=== PATIENT | male | born 1970 | race Caucasian/White ===

== ENCOUNTER 2023-04-29 17:20 | Emergency (ER) | payer OTHER, SELFPAY ==
--- NOTE | ~2023-04-29 | CT_ITS ---
EXAMINATION: CT SOFT TISSUE NECK WITHOUT CONTRAST CLINICAL INFORMATION: Right-sided parotid swelling COMPARISON: None available. TECHNIQUE: Helical imaging was performed in the axial plane with generation of coronal and sagittal reformatted images. Coronal and sagittal reformatted images are performed at CT scanner This CT examination was performed using dose optimization techniques as appropriate, variously including the following: *Automated exposure control *Adjustment of mA and/or kV according to patient size (this includes techniques or standardized protocols for targeted exams where dose is matched to indication/reason for exam; i.e. extremities or head) *Use of iterative reconstruction technique DLP: 539 mGy-cm FINDINGS: Right left parotid glands are symmetric in size and similar in density. No mass. No focal fluid collection or abscess. No calcification. No neck mass or lymphadenopathy. The fat planes throughout the neck are normal. Normal nasopharynx, pharynx and hypopharynx structures. Normal aeration of paranasal sinuses. The orbits are unremarkable. Degenerative spondylosis of disc height narrowing and vertebral endplate spur C4-C5 through the C6-C7 discs levels. Lung apices and superior mediastinum normal. Thyroid and submandibular glands are normal. CT/CT soft tissue neck wo IV con IMPRESSION: Normal CT of soft tissues of the neck. The right and left parotid glands are symmetric in size and similar in density. No mass or lymphadenopathy.
--- NOTE | 2023-04-29 17:33 | ED.GENADULT ---
HPI - General Adult General Chief complaint: Dental/Oral Stated complaint: right side jaw pain,? salivary stone Time Seen by Provider: 04/29/23 19:39 Source: patient, family, RN notes reviewed and old records reviewed Mode of arrival: ambulatory Limitations: no limitations History of Present Illness HPI narrative: This is a 52-year-old male, with a past medical history of TIA, presenting to the emergency department for evaluation of right-sided jaw pain. Patient was seen at an urgent care earlier today who believed that it was a salivary stone, was prescribed prednisone andTylenol. Patient reports that he was woken up in the middle of the night at 2:00 a.m. with right-sided jaw pain which has since worsened. He reports that the pain worsens upon palpation externally and with opening and closing of his job. Patient denies any fevers or chills. Reporting a 10/10 pain. No other complaints or concerns at this time. MD complaint: Right-sided jaw pain Onset (ago): hour(s) Location: face Radiation: non-radiation Severity: mild Quality: aching Pain Consistency: constant Relieving factors: none Exacerbating factors: none Associated symptoms: denies other symptoms Treatments prior to arrival: none Related Data Previous Rx's Medication Instructions Recorded ketorolac 10 mg tablet 10 mg PO Q6H PRN pain 5 days #10 04/30/23 tabs lidocaine 4 % topical cream 1 appl topical BID PRN pain #15 04/30/23 grams Allergies Allergy/AdvReac Type Severity Reaction Status Date / Time No Known Allergies Allergy Verified 04/29/23 17:37 Review of Systems Review of Systems: Constitutional: No Weight loss, No Fever, No Chills, No Night Sweats, No Fatigue, No Malaise ENT/Mouth: No Hearing loss, No Ear Pain, No Nasal Congestion, No Sinus Pain, No Hoarseness, No sore throat, No Rhinorrhea, No Swallowing Difficulty Eyes: No Eye Pain, No Swelling, No Redness, No Foreign Body, No Discharge, No Vision Changes Cardiovascular: No Chest Pain, No SOB, No Dyspnea on Exertion, No Orthopnea, No Edema, No Palpitations Respiratory: No Cough, No Sputum, No Wheezing, No Smoke Exposure, No Dyspnea Gastrointestinal: No Nausea, No Vomiting, No Diarrhea, No Constipation, No Abdominal pain, No Hematochezia, No Melena Genitourinary: No irregular bleeding, No Dysuria, No Urinary Frequency, No Hematuria, No Urinary Incontinence/retention, No Urgency, No Flank Pain, No Urinary Flow Changes, No Hesitancy Musculoskeletal: No joint pain, No Myalgias, No Joint Swelling Skin: No Skin Lesions, No rash Neuro: No Weakness, No Numbness, No Paresthesias, No Loss of Consciousness, No Dizziness, No Headache Psych: No Anxiety/Panic, No Depression, No SI/HI/AH/VH, No Social Issues, Heme/Lymph: No Bruising, No Bleeding,No Lymphadenopathy Endocrine: No Polyuria, No Polydipsia, No Temperature Intolerance Yes all other systems are reviewed and are negative Constitutional: Constitutional: Reports as per [facility] Social History Social History Advance Directives: No Advance Directives Information Provided: No Physical Exam ED Vital Signs: Vital Signs - 24 hr 04/29/23 17:34 04/29/23 19:48 Temperature 98.7 F 98.1 F Pulse Rate 90 88 Respiratory Rate 20 18 Blood Pressure 169/115 H 177/93 H Pulse Oximetry 97 95 Oxygen Delivery Method Room Air Room Air BMI result Body Mass Index 30.5 Const General: cooperative, comfortable and no acute distress Orientation/consciousness: patient oriented x3 Limitations: no limitations HENMT Other: Right parotid swelling noted, with mild tenderness in this region. No mastoid tenderness. No swelling noted over the Stensen duct. No fluctuance tenderness overlying the gum line or dentition. Head: Yes normal to inspection, Yes normocephalic and Yes atraumatic Ears: hearing grossly normal bilaterally and TM's normal bilaterally General nose exam: Normal external nose present Face and sinus: Yes normal facial exam Mouth: Normal oral and palatal mucosa present, oropharynx normal and moist mucous membranes Teeth and gingiva: dentition normal and multiple restorations Throat: Yes posterior oropharynx normal Eyes General: appearance normal, both eyes and all related structures Eyelids: Yes eyelids normal Conjunctivae: conjunctivae normal Sclerae: sclerae normal Pupils: Equal, round and reactive pupils present EOM: EOMs intact bilaterally Neck Neck: Yes normal visual inspection, Yes full ROM and Yes no lymphadenopathy Lymphatic: no lymphadenopathy noted Chest Chest palpation & inspection: normal inspection of the chest Resp Effort & Inspection: normal respiratory effort and able to speak in complete sentences Auscultation: clear to auscultation bilaterally, no crackles, no rales, no rhonchi and no wheezes Cardio Rate: regular rate Rhythm: regular rhythm Heart sounds: S1 normal heart sound present and S2 normal heart sound present GI Inspection: Yes normal to inspection Skin General skin exam: no rashes or lesions noted Trauma: no lacerations or abrasions Wounds: no wounds Neuro General: patient oriented x3 and moves all extremities Cranial nerves: Yes Equal, round and reactive pupils present Extrem General: Yes normal to inspection Right upper extremity: normal to inspection Left upper extremity: normal to inspection Right lower extremity: normal to inspection Left lower extremity: normal to inspection Course Course Course Narrative: This is a rapid medical exam. Deferred additional HPI, ROS, PE to primary provider. 52 yo male with history of TIA, chronic back pain here with complaints of right sided jaw today. Went to and given rx for prednisone/tylenol today. ON exam ?parotitis Hypertensive in triage ?secondary to pain Reevaluation(s) Reevaluation #1: Soft tissue neck revealing symmetric right and left parotid glands. No mass or lymphadenopathy. Pt seen and evaluated by Dr. Guillen who believes symptoms are likely due to silendenitis. pt reports his symptoms have improved, and patient is able to open and close his jaw. Patient requesting topical anesthetic, advised that patient's mainstay of treatment is staying well hydrated, massage and using sour candies. Advised to follow-up with primary care physician regarding symptoms. Patient understands and agrees with plan. Patient given strict return precautions is stable for discharge Time: 00:11 Medications Administered Discontinued Medications Generic Name Dose Route Start Last Admin Trade Name Debbie PRN Reason Stop Dose Admin Sodium Chloride 1,000 mls @ 999 mls/hr 04/29/23 20:48 04/29/23 23:07 Ns IVCONT 04/29/23 21:48 Infused .Q1H1M ONE Infusion Ketorolac Tromethamine 30 mg 04/29/23 20:48 04/29/23 21:03 Ketorolac Tromethamine 30 Mg/Ml Vial IVPUSH 04/29/23 20:49 30 mg ONCE ONE Administration Ondansetron HCl 4 mg 04/29/23 20:48 04/29/23 21:03 Ondansetron Hcl 4 Mg/2 Ml Vial IVPUSH 04/29/23 20:49 4 mg ONCE ONE Administration Medical Decision Making Medical Decision Making [facility] Narrative: 52-year-old male presenting to the emergency department for evaluation of right-sided jaw swelling since today. Patient awoke with the symptoms. On examination patient having difficult time opening and closing his jaw secondary to the pain. Patient mildly hypertensive likely due to pain, otherwise, patient is afebrile and all other vital signs are within normal limits. Plan: Labs, CT soft tissue neck without contrast ordered. Patient medicated with 1 L of IV fluids and ketorolac. Differential Diagnosis Differential Diagnoses: The differential diagnosis associated with the presentation includes parotoiditis, saldentitis, OM, TMJ, abscess Admission/Observation Consideration of admission/observation: Escalation of care including admission/observation considered Lab Data [facility] Lab Attestation statement: I reviewed the patient's lab results. 04/29/23 21:12 04/29/23 21:12 Labs: Lab Results 04/29/23 04/29/23 04/29/23 Range/Units 21:12 21:12 21:12 WBC 9.8 (4.8-10.8) X10*3/uL RBC 6.02 H (4.60-5.80) X10*6/uL Hgb 18.1 H (14.0-18.0) g/dl Hct 49.6 (42.0-52.0) % MCV 82.4 (80.0-98.0) fL MCH 30.1 (27.0-33.0) pg MCHC 36.5 H (31.0-36.0) g/dl RDW 12.2 (11.0-16.0) % Plt Count 196 (160-400) X10*3/uL MPV 8.8 L (9.4-12.4) fL Immature Gran % (Auto) 0.2 (0.0-0.4) % Neut % (Auto) 90.8 H (45-73) % Lymph % (Auto) 6.9 L (20-40) % [place] % (Auto) 1.9 L (2-11) % Eos % (Auto) 0.0 (0-4) % Baso % (Auto) 0.2 (0-2) % Lymph # (Auto) 0.7 L (1.2-4.9) X10*3/uL [place] # (Auto) 0.2 (0.1-1.2) X10*3/uL Eos # (Auto) 0.0 (0.0-0.4) X10*3/uL Baso # (Auto) 0.0 (0.0-0.2) X10*3/uL Abs Immat Gran (auto) 0.02 (0.00-0.03) X10*3/uL Absolute Neuts (auto) 8.9 H (2.0-8.3) x10*3/uL Absolute Nucleated RBC 0.000 (0.0-0.012) X10*3/uL Nucleated RBC % (auto) 0.0 (0.0-0.2) /100WBC Smear Tech's Comments VERIFIED ESR 2 (0-15) MM/HR Sodium 136 (135-145) mmol/L Potassium 4.2 (3.3-5.1) mmol/L Chloride 105 (96-108) mmol/L Carbon Dioxide 22 (22-29) mmol/L Anion Gap 13 (12-20) BUN 11 (9-16) mg/dL Creatinine 1.04 (0.5-1.4) mg/dL Estim Creat Clear Calc 101.5 Estimated GFR > 60 Random Glucose 126 H (60-115) mg/dL Calcium 9.8 (8.4-10.2) mg/dL Total Bilirubin 1.5 H (0.0-1.0) mg/dL Direct Bilirubin 0.4 (0.0-0.5) mg/dL AST 18 (5-37) U/L ALT 41 H (0-40) U/L Alkaline Phosphatase 93 (39-117) U/L C-Reactive Protein 1.30 H (< or = 0.50) mg/dL Total Protein 7.4 (6.5-8.0) g/dL Albumin 4.0 (3.5-5.0) g/dL Radiology Impression Discussion of test interpretation with radiology: I have reviewed the radiologist's reading. External Record Review External record reviewed: Inpatient record, Office record, Outpatient record, Prior outpatient labs, Prior outpatient radiology, Primary care record and Outside ED record Discharge Plan Discharge Clinical Impression: Sialadenitis, Parotid swelling Patient Disposition: Home, Self-Care Instructions: Sialoadenitis (ED) Additional Instructions: Drink plenty of fluids and get plenty of rest. Take prescribed medication as directed. Sour candies can help alleviate some of your symptoms. Gentle massage and hot pack to your face can also help. Do not use hot pack while using lidocaine gel. If any new or worsening symptoms occur please return for re-evaluation. Prescriptions: New ketorolac 10 mg tablet 10 mg PO Q6H PRN (Reason: pain) 5 Days Qty: 10 0RF Rx Instructions: Patient id received 1st dose in the emergency department on 04/30/2023 lidocaine 4 % cream 1 appl topical BID PRN (Reason: pain) Qty: 15 0RF
[2023-04-29 17:34] VITALS: BP 169/115; PULSE 90; RESP 20; TEMP 37.1; O2SAT 97; BMI 30.5
[2023-04-29 19:48] VITALS: BP 177/93; PULSE 88; RESP 18; TEMP 36.7; O2SAT 95
[2023-04-29] MEDS: Ketorolac Tromethamine 30 MG/ML VIAL IVPUSH (21:03)
[2023-04-29] MEDS: ondansetron HCL 4 MG/2 ML VIAL IVPUSH (21:03)
[2023-04-29] MEDS: 0.9 % Sodium Chloride 1,000 ML 999 ML IVCONT (21:03)
[2023-04-29 21:18] LABS: Basophils Percent Auto 0.2 % (0-2); Hematocrit 49.6 % (42.0-52.0); Hemoglobin 18.1 g/dl (14.0-18.0); Imm Gran Abs Auto 0.02 X10*3/uL (0.00-0.03); Imm Gran Pct Auto 0.2 % (0.0-0.4); Lymphocytes Absolute Auto 0.7 X10*3/uL (1.2-4.9); Lymphocytes Percent Auto 6.9 % (20-40); MANUAL DIFF FLAG SCAN; Mean Corpuscular HGB Conc 36.5 g/dl (31.0-36.0); Mean Corpuscular Hemoglobin 30.1 pg (27.0-33.0); Mean Corpuscular Volume 82.4 fL (80.0-98.0); Mean Platelet Volume 8.8 fL (9.4-12.4); Monocytes Absolute Auto 0.2 X10*3/uL (0.1-1.2); Monocytes Percent Auto 1.9 % (2-11); Neutrophils Absolute Auto 8.9 x10*3/uL (2.0-8.3); Neutrophils Percent Auto 90.8 % (45-73); Platelet Count 196 X10*3/uL (160-400); Red Blood Count 6.02 X10*6/uL (4.60-5.80); Red Cell Distribution Width 12.2 % (11.0-16.0); SCAN SMEAR FLAG 1; White Blood Count 9.8 X10*3/uL (4.8-10.8)
[2023-04-29 21:33] LABS: Alanine Aminotransferase 41 U/L (0-40); Alkaline Phosphatase 93 U/L (39-117); Anion Gap 13 (12-20); Aspartate Amino Transferase 18 U/L (5-37); Bilirubin Direct 0.4 mg/dL (0.0-0.5); Bilirubin Total 1.5 mg/dL (0.0-1.0); Blood Urea Nitrogen 11 mg/dL (9-16); Calcium 9.8 mg/dL (8.4-10.2); Carbon Dioxide 22 mmol/L (22-29); Chloride 105 mmol/L (96-108); Creatinine Clr Calc Pharmacy 101.5; Estimated Glomerular Filt Rate > 60; Glucose Random 126 mg/dL (60-115); Potassium 4.2 mmol/L (3.3-5.1); Sodium 136 mmol/L (135-145); Total Protein 7.4 g/dL (6.5-8.0)
[2023-04-29 21:34] LABS: SLIDE REVIEW VERIFIED
--- NOTE | 2023-04-29 21:46 | PC.NURSE ---
Suzanne ALVARADO notified pain improved to 7/10 but still painful.
[2023-04-29 21:52] LABS: Erythrocyte Sedimentation Rate 2 MM/HR (0-15)
== END 2023-04-30 00:23 | disposition home or self-care (01) ==
PROVIDERS: Physician Assistant Medical; Emergency Provider Emergency Medicine Emergency Medical Services
DX: K11.20 Sialoadenitis, unspecified (principal); M54.2 Cervicalgia; Z79.899 Other long term (current) drug therapy
CPT/HCPCS: 36415; 70490; 80048; 80076; 85025; 85652; 86140; 96361; 96374; 96375; 99284; J1885; J2405